=== PATIENT | female | born 1975 | race Caucasian/White ===

== ENCOUNTER 2018-01-07 09:26 | Emergency (ER) | payer BC ==
[2018-01-07 09:59] VITALS: BP 115/71
[2018-01-07] MEDS ORDERED: Tetan/Diph/Pertus SYR(Tdap)* 0.5 ML SYR(BOOSTRIX) use SYR IM ONE (10:06)
--- NOTE | 2018-01-07 10:07 | UC ---
Hand/Wrist HPI - HPI Summary HPI Summary: PT WAS APPLYING A BANDAGE TO HER INJURED DOG LAST PM AND THE DOG BIT HER. DOG IS UTD ON SHOTS AND WAS FINE AFTER. 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 LAST TETANUS IS NOT KNOWN. C/O SWELLING AND PW'S TO HER R INDEX FINGER. CLAENED SITE AFTER THE BITE. - History Of Current Complaint Chief Complaint: UCBiteInjury Stated Complaint: DOG BITE TO HAND Time Seen by Provider: 01/07/18 10:02 Hx Obtained From: Patient Hx Last Menstrual Period: 12/28/17 Onset/Duration: Sudden Onset Pain Intensity: 3 Character Of Pain: Stiffness - FROM SWELLING Associated Signs And Symptoms: Positive: Swelling. Negative: Redness, Fever, Weakness, Numbness/Tingling - Allergies/Home Medications Allergies/Adverse Reactions: Allergies Allergy/AdvReac Type Severity Reaction Status Date / Time No Known Allergies Allergy Verified 01/07/18 09:51 Home Medications: Home Medications Acetaminop/Codeine 30 MG TAB* [Tylenol/Codeine 30 MG TAB*] 1 tab PO Q6H PRN [History Confirmed 01/07/18] Fexofenadine (NF) [Martha 180 (NF)] 180 mg PO DAILY 01/07/18 [History Confirmed 01/07/18] Ibuprofen TAB* [Advil TAB*] 400 mg PO Q6H PRN 01/07/18 [History Confirmed ] Levonorgestrel-Ethin Estradiol [Maria Eugenia] 1 tab PO DAILY 01/07/18 [History Confirmed 01/07/18] PMH/Surg Hx/FS Hx/Imm Hx - Additional Past Medical History Additional PMH: ALLERGIES - Surgical History Surgical History: None - Family History Known Family History: Positive: None - Social History Occupation: Employed Full-time Alcohol Use: Occasionally Substance Use Type: None Smoking Status (MU): Never Smoked Tobacco - Immunization History Most Recent Tetanus Shot: unknown Vaccination Up to Date: Yes Review of Systems Constitutional: Negative Skin: Negative Eyes: Negative ENT: Negative Respiratory: Negative Cardiovascular: Negative Gastrointestinal: Negative Genitourinary: Negative Motor: Negative Neurovascular: Negative Musculoskeletal: Other: - pw's and swelling R index finger. Neurological: Negative Psychological: Negative Is Patient Immunocompromised?: No All Other Systems Reviewed And Are Negative: Yes Physical Exam Triage Information Reviewed: Yes Appearance: Well-Appearing Vital Signs: Initial Vital Signs Temp 98 F 01/07/18 09:54 Pulse 65 01/07/18 09:54 Resp 18 01/07/18 09:54 BP 115/71 01/07/18 09:54 Pulse Ox 100 01/07/18 09:54 Eyes: Positive: Conjunctiva Clear ENT: Positive: Normal ENT inspection Neck: Positive: Supple Respiratory: Positive: Lungs clear, Normal breath sounds Cardiovascular: Positive: RRR, No Murmur Abdomen Description: Positive: Nontender, No Organomegaly, Soft Bowel Sounds: Positive: Present Musculoskeletal: Positive: Other: - R hand: volar index with 2 pw's and dorsal has abrasions. digit with mild swelling. flexor tendon is non tender and passive /active rom is intact. not red oe warm and no streaking. rest of hand is atraumatic. Neurological: Positive: Alert Psychological: Positive: Age Appropriate Behavior Skin Exam: Normal Hand/Wrist Course/Dx - Course Course Of Treatment: no concern for infection or compartment syndrom. will update pt tetanus and tx with augmentin. dog utd on shots and acting normal for the situation. - Differential Dx/Diagnosis Provider Diagnoses: Dog bite R indewx finger. Discharge - Sign-Out/Discharge Documenting (check all that apply): Discharge - Discharge Plan Condition: Stable Disposition: HOME Prescriptions: Amoxicillin/Clavulanate TAB* [Augmentin TAB 875*] 875 mg PO BID #20 tab Patient Education Materials: Animal Bite (ED) Referrals: Chela Rodriguez MD [Primary Care Provider] - 5 Days - Billing Disposition and Condition Condition: STABLE Disposition: HOME
== END 2018-01-07 10:25 | disposition home or self-care (01) ==
LOC: UCCORT 09:26
DX: S61.250A Open bite of right index finger without damage to nail, initial encounter (principal); W54.0XXA Bitten by dog, initial encounter; Y93.89 Activity, other specified; Y92.9 Unspecified place or not applicable
CPT/HCPCS: 90471; 90715; 99202; G0463

== ENCOUNTER 2019-03-15 09:05 | Emergency (ER) | payer BC ==
--- OUTSIDE RECORDS SUMMARY | 2019-03-15 09:20 | XMS REPORT | Continuity of Care Document ---
:1975 External Reference #:[id number] Author Name Zahra PINEDA Carrizales Address [address] [place] [address] Care Team Providers Name Role Phone Dana Torres M.D. Care Team Information Bryologist Unavailable Chela Rodriguez M.D. Primary Care Physician Unavailable Payers Date Identification Numbers Payment Provider Subscriber Policy Number: [id number] [facility] Geri Hart PayID: [id number] [address] [place] [address] Problems Active Problems Provider Date Allergic rhinitis Francia Moses M.D. Onset: 04/27/2012 Food anaphylaxis Francia Moses M.D. Onset: 04/27/2012 Allergic rhinitis due to pollen Francia Moses M.D. 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 Home Environment Does not have an air conditioner Home Environment Stairs are present Home Environment Unfinished Basement Home Environment The basement is damp and dehumidifier used Home Environment The basement is moldy Home Environment Musty Basement Home Environment Cotton Comforter Home Environment Mattress is 5 years old Home Environment Mattress is not encased in an allergy proof case Home Environment Regular Mattress Home Environment Pillows are polyester Home Environment Uses a dehumidifier Home Environment Pillows are encased in an allergy proof case Home Environment There are draperies in the home Home Environment The home is not mik Home Environment The floors are carpeted Home Environment The floors are wood Home Environment The floors are tile Home Environment Radiator Heat Home Environment [place] in [place] [facility] Home Environment Water Source: [facility] Smoke-Free Home is smoke-free Smoke-Free Work is smoke-free Pets 1 dog Occupation [employer] ETOH Use Occasionally consumes alcohol Tobacco Use Start: Unknown Patient has never smoked Recreational Drug Use Denies Drug Use Allergies, Adverse Reactions, Alerts Active Allergies Reaction Severity Comments Date Tetracycline nausea and stomach pain 09/01/2011 Medications Active Medications SIG Qnty Indications Ordering Date Provider Epipen 2-Ernst use as directed 4units Zahra Carrizales, 01/30/2019 0.3mg/0.3ML [facility] Solution Auto-Inject Fluticasone Propionate 2 sprays in each 1units Jackie Herrera, nostril daily [facility] [employer] 50mcg/Act Suspension Martha Allergy 1 by mouth every 30tabs Unknown 180mg day Tablets Ketotifen Hydrogen as needed Unknown Fumarate Powder Levonorgestrel And Unknown Ethinyl Estradiol 0.1-0.02&0.01mg Tablets Zantac 150 Maximum take one twice a Unknown Strength day 150mg Tablets Medications Administered in Office Medication SIG Qnty Indications Ordering Provider Date Injection Allergy Injection 12/07/2016 Injection Injection Allergy Injection 11/09/2016 Injection Injection Allergy Injection 10/19/2016 Injection Injection Allergy Injection 10/06/2016 Injection Injection Allergy Injection 09/16/2016 Injection Injection Allergy Injection 09/07/2016 Injection Injection Allergy Injection 08/17/2016 Injection Injection Allergy Injection 07/20/2016 Injection Injection Allergy Injection 07/06/2016 Injection Injection Allergy Injection 06/22/2016 Injection Injection Allergy Injection 06/01/2016 Injection Injection Allergy Injection 05/18/2016 Injection Injection Allergy Injection 04/20/2016 Injection Injection Allergy Injection 04/06/2016 Injection Injection Allergy Injection 03/23/2016 Injection Injection Allergy Injection 02/24/2016 Injection Injection Allergy Injection 02/12/2016 Injection Injection Allergy Injection 01/27/2016 Injection Injection Allergy Injection 01/13/2016 Injection Injection Allergy Injection 12/30/2015 Injection Injection Allergy Injection 12/16/2015 Injection Injection Allergy Injection 11/18/2015 Injection Injection Allergy Injection 10/21/2015 Injection Injection Allergy Injection 09/16/2015 Injection Injection Allergy Injection 08/19/2015 Injection Injection Allergy Injection 07/22/2015 Injection Injection Allergy Injection 07/01/2015 Injection Injection Allergy Injection 06/10/2015 Injection Injection Allergy Injection 05/27/2015 Injection Injection Allergy Injection 05/06/2015 Injection Injection Allergy Injection 04/22/2015 Injection Injection Allergy Injection 04/08/2015 Injection Injection Allergy Injection 03/25/2015 Injection Injection Allergy Injection 03/04/2015 Injection Injection Allergy Injection 02/18/2015 Injection Injection Allergy Injection 02/04/2015 Injection Injection Allergy Injection 01/21/2015 Injection Injection Allergy Injection 01/07/2015 Injection Injection Allergy Injection 12/10/2014 Injection Injection Allergy Injection 11/12/2014 Injection Injection Allergy Injection 10/15/2014 Injection Injection Allergy Injection 09/17/2014 Injection Injection Allergy Injection 08/20/2014 Injection Injection Allergy Injection 07/16/2014 Injection Injection Francia Moses M.D. 06/25/2014 Injection Injection Allergy Injection 06/25/2014 Injection Injection Francia Moses M.D. 06/11/2014 Injection Injection Allergy Injection 06/11/2014 Injection Injection Francia Moses M.D. 05/28/2014 Injection Injection Allergy Injection 05/28/2014 Injection Injection Francia Moses M.D. 05/14/2014 Injection Injection Allergy Injection 05/14/2014 Injection Injection Francia Moses M.D. 04/30/2014 Injection Injection Allergy Injection 04/30/2014 Injection Injection Francia Moses M.D. 04/16/2014 Injection Injection Allergy Injection 04/16/2014 Injection Injection Francia Moses M.D. 03/26/2014 Injection Injection Allergy Injection 03/26/2014 Injection Injection Allergy Injection 03/05/2014 Injection Injection Francia Moses M.D. 02/05/2014 Injection Injection Allergy Injection 02/05/2014 Injection Injection Francia Moses M.D. 01/22/2014 Injection Injection Allergy Injection 01/22/2014 Injection Injection Francia Moses M.D. 01/08/2014 Injection Injection Allergy Injection 01/08/2014 Injection Injection Francia Moses M.D. 12/25/2013 Injection Injection Allergy Injection 12/25/2013 Injection Injection Francia Moses M.D. 12/04/2013 Injection Injection Allergy Injection 12/04/2013 Injection Injection Allergy Injection 11/20/2013 Injection Injection Allergy Injection 10/23/2013 Injection Injection Allergy Injection 10/09/2013 Injection Injection Francia Moses M.D. 09/27/2013 Injection Injection Allergy Injection 09/27/2013 Injection Injection Francia Moses M.D. 08/28/2013 Injection Injection Allergy Injection 08/28/2013 Injection Injection Francia Moses M.D. 08/14/2013 Injection Injection Allergy Injection 08/14/2013 Injection Injection Francia Moses M.D. 07/31/2013 Injection Injection Allergy Injection 07/31/2013 Injection Injection Francia Moses M.D. 07/12/2013 Injection Injection Allergy Injection 07/12/2013 Injection Injection Francia Moses M.D. 06/26/2013 Injection Injection Allergy Injection 06/26/2013 Injection Injection Francia Moses M.D. 06/12/2013 Injection Injection Allergy Injection 06/12/2013 Injection Injection Allergy Injection 05/29/2013 Injection Injection Francia Moses M.D. 05/15/2013 Injection Injection Allergy Injection 05/15/2013 Injection Injection Francia Moses M.D. 05/01/2013 Injection Injection Allergy Injection 05/01/2013 Injection Injection Francia Moses M.D. 04/10/2013 Injection Injection Allergy Injection 04/10/2013 Injection Injection Francia Moses M.D. 04/03/2013 Injection Injection Allergy Injection 04/03/2013 Injection Injection Francia Moses M.D. 03/13/2013 Injection Injection Allergy Injection 03/13/2013 Injection Injection Francia Moses M.D. 03/01/2013 Injection Injection Allergy Injection 03/01/2013 Injection Injection Francia Moses M.D. 02/13/2013 Injection Injection Allergy Injection 02/13/2013 Injection Injection Francia Moses M.D. 02/01/2013 Injection Injection Allergy Injection 02/01/2013 Injection Injection Francia McNairn, M.D. 01/16/2013 Injection Injection Allergy Injection 01/16/2013 Injection Injection Francia McNairn, M.D. 01/02/2013 Injection Injection Allergy Injection 01/02/2013 Injection Injection Francia McNairn, M.D. 12/19/2012 Injection Injection Allergy Injection 12/19/2012 Injection Injection Francia McNairn, M.D. 12/05/2012 Injection Injection Unknown 12/05/2012 Injection Injection Francia McNairn, M.D. 11/21/2012 Injection Injection Francia McNairn, M.D. 11/07/2012 Injection Injection Francia McNairn, M.D. 10/17/2012 Injection Injection Francia McNairn, M.D. 10/05/2012 Injection Injection Francia McNairn, M.D. 09/21/2012 Injection Injection Francia McNairn, M.D. 08/31/2012 Injection Injection Francia McNairn, M.D. 08/15/2012 Injection Injection Francia McNairn, M.D. 07/27/2012 Injection Injection Francia McNairn, M.D. 07/13/2012 Injection Injection Francia McNairn, M.D. 06/15/2012 Injection Injection Francia McNairn, M.D. 06/01/2012 Injection Injection Francia McNairn, M.D. 05/18/2012 Injection Injection Francia McNairn, M.D. 05/04/2012 Injection Injection Francia McNairn, M.D. 04/27/2012 Injection Injection Francia McNairn, M.D. 04/13/2012 Injection Injection Francia McNairn, M.D. 04/06/2012 Injection Injection Francia McNairn, M.D. 03/30/2012 Injection Injection Francia McNairn, M.D. 03/23/2012 Injection Injection Francia McNairn, M.D. 03/16/2012 Injection Injection Francia McNairn, M.D. 03/07/2012 Injection Injection Francia McNairn, M.D. 03/02/2012 Injection Injection Francia McNairn, M.D. 02/24/2012 Injection Injection Francia Moses M.D. 02/17/2012 Injection Injection Francia Moses M.D. 02/10/2012 Injection Injection Francia Moses, Christiano 02/01/2012 Injection Injection Francia Moses, Christiano 01/25/2012 Injection Injection Francia Moses, Christiano 01/18/2012 Injection Injection Francia Moses, Christiano 01/11/2012 Injection Injection Francia Moses, Christiano 01/04/2012 Injection Injection Francia Moses, Christiano 12/28/2011 Injection Injection Francia Moses, Christiano 12/21/2011 Injection Injection Francia Moses, Christiano 12/14/2011 Injection Injection Francia Moses, Christiano 12/07/2011 Injection Injection Francia Moses, Christiano 11/30/2011 Injection Injection Francia Moses, Christiano 11/23/2011 Injection Injection Francia Moses, Christiano 11/16/2011 Injection Injection Francia Moses, Christiano 11/09/2011 Injection Injection Francia Moses, Christiano 11/02/2011 Injection Immunizations CPT Code Status Date Vaccine Lot # [id number] Given Unknown Influenza Vaccine 00096 Given Unknown Influenza Vaccine Vital Signs Date Vital Result Comment 02/13/2019 9:58am Height 68 inches 5'8" Weight 190.00 lb Weight 86.184 kg Respiratory Rate 16 /min Heart Rate 57 /min O2 % BldC Oximetry 96 % BP Systolic 99 mmHg BP Diastolic 60 mmHg BMI (Body Mass Index) 28.9 kg/m2 01/30/2019 11:07am Height 68 inches 5'8" Weight 192.00 lb Weight 87.091 kg Respiratory Rate 18 /min Heart Rate 62 /min O2 % BldC Oximetry 98 % BP Systolic 96 mmHg BP Diastolic 62 mmHg BMI (Body Mass Index) 29.2 kg/m2 11/09/2016 8:56am Height 68 inches 5'8" Weight 194.00 lb Weight 87.998 kg Respiratory Rate 16 /min Heart Rate 67 /min O2 % BldC Oximetry 98 % BP Systolic 110 mmHg BP Diastolic 64 mmHg BMI (Body Mass Index) 29.5 kg/m2 04/30/2014 9:37am Height 67 inches 5'7" Weight 183.00 lb Weight 83.009 kg Respiratory Rate 18 /min Heart Rate 62 /min O2 % BldC Oximetry 97 % BP Systolic 118 mmHg BP Diastolic 82 mmHg BMI (Body Mass Index) 28.7 kg/m2 05/01/2013 9:43am Height 66 inches 5'6" Weight 180.00 lb Weight 81.648 kg Respiratory Rate 16 /min Heart Rate 70 /min O2 % BldC Oximetry 98 % BMI (Body Mass Index) 29.0 kg/m2 04/27/2012 8:57am Respiratory Rate 14 /min Heart Rate 74 /min Procedures Date Code Description Status 12/07/2016 04979 Injection Completed 11/09/2016 93695 Injection Completed 10/19/2016 93289 Injection Completed 10/06/2016 26245 Extract 1-10 Completed 10/06/2016 47701 Injection Completed 09/16/2016 62544 Injection Completed 09/07/2016 92594 Injection Completed 08/17/2016 02385 Injection Completed 07/20/2016 93311 Injection Completed 07/06/2016 20408 Injection Completed 06/22/2016 12443 Injection Completed 06/01/2016 69732 Injection Completed 05/18/2016 79369 Injection Completed 04/20/2016 82761 Injection Completed 04/06/2016 28188 Extract 1-10 Completed 04/06/2016 95129 Injection Completed 03/23/2016 48545 Injection Completed 02/24/2016 17205 Injection Completed 02/12/2016 10585 Injection Completed 01/27/2016 20967 Injection Completed 01/13/2016 53759 Injection Completed 12/30/2015 66137 Injection Completed 12/16/2015 56122 Injection Completed 11/18/2015 89339 Injection Completed 10/21/2015 82499 Injection Completed 09/16/2015 19053 Extract 1-10 Completed 09/16/2015 64496 Injection Completed 08/19/2015 91597 Injection Completed 07/22/2015 07243 Injection Completed 07/01/2015 31970 Injection Completed 06/10/2015 46800 Injection Completed 05/27/2015 90283 Injection Completed 05/06/2015 40087 Injection Completed 04/22/2015 14607 Injection Completed 04/08/2015 23509 Injection Completed 03/25/2015 05213 Injection Completed 03/04/2015 45056 Extract 1-10 Completed 03/04/2015 77098 Injection Completed 02/18/2015 87119 Injection Completed 02/04/2015 00114 Injection Completed 01/21/2015 35206 Injection Completed 01/07/2015 35804 Injection Completed 12/10/2014 57372 Injection Completed 11/12/2014 03478 Injection Completed 10/15/2014 21466 Injection Completed 09/17/2014 10705 Injection Completed 08/20/2014 49177 Injection Completed 07/16/2014 22954 Extract 1-10 Completed 07/16/2014 72068 Injection Completed 06/25/2014 02627 Injection Completed 06/25/2014 83588 Injection Completed 06/11/2014 68104 Injection Completed 06/11/2014 57146 Injection Completed 05/28/2014 91269 Injection Completed 05/28/2014 15970 Injection Completed 05/14/2014 58537 Injection Completed 05/14/2014 25305 Injection Completed 04/30/2014 80444 Injection Completed 04/30/2014 23069 Injection Completed 04/16/2014 96788 Injection Completed 04/16/2014 09474 Injection Completed 03/26/2014 00444 Injection Completed 03/26/2014 94562 Injection Completed 03/05/2014 47489 Injection Completed 02/05/2014 08488 Injection Completed 02/05/2014 50084 Injection Completed 01/22/2014 35233 Extract 1-10 Completed 01/22/2014 98960 Injection Completed 01/22/2014 19739 Injection Completed 01/08/2014 01355 Injection Completed 01/08/2014 50024 Injection Completed 12/25/2013 61687 Injection Completed 12/25/2013 55023 Injection Completed 12/04/2013 55876 Injection Completed 12/04/2013 53815 Injection Completed 11/20/2013 37338 Injection Completed 10/23/2013 10205 Injection Completed 10/09/2013 66095 Injection Completed 09/27/2013 27263 Injection Completed 09/27/2013 59014 Injection Completed 08/28/2013 49114 Injection Completed 08/28/2013 31037 Injection Completed 08/14/2013 18703 Injection Completed 08/14/2013 19285 Injection Completed 07/31/2013 16691 Extract 1-10 Completed 07/31/2013 53693 Injection Completed 07/31/2013 18963 Injection Completed 07/12/2013 35558 Injection Completed 07/12/2013 98522 Injection Completed 06/26/2013 81319 Injection Completed 06/26/2013 85251 Injection Completed 06/12/2013 14130 Injection Completed 06/12/2013 87351 Injection Completed 05/29/2013 80160 Injection Completed 05/15/2013 33548 Injection Completed 05/15/2013 07585 Injection Completed 05/01/2013 59921 Injection Completed 05/01/2013 31558 Injection Completed 04/10/2013 24987 Injection Completed 04/10/2013 51575 Injection Completed 04/03/2013 61089 Injection Completed 04/03/2013 99066 Injection Completed 03/13/2013 03288 Injection Completed 03/13/2013 91413 Injection Completed 03/01/2013 23865 Extract 1-10 Completed 03/01/2013 50164 Injection Completed 03/01/2013 83041 Injection Completed 02/13/2013 94531 Injection Completed 02/13/2013 66969 Injection Completed 02/01/2013 39479 Injection Completed 02/01/2013 71853 Injection Completed 01/16/2013 69484 Injection Completed 01/16/2013 09717 Injection Completed 01/02/2013 39930 Injection Completed 01/02/2013 16005 Injection Completed 12/19/2012 08133 Injection Completed 12/19/2012 53303 Injection Completed 12/05/2012 99716 Injection Completed 12/05/2012 25913 Injection Completed 11/21/2012 37245 Injection Completed 11/07/2012 39092 Injection Completed 10/17/2012 52008 Injection Completed 10/05/2012 77358 Injection Completed 10/05/2012 65859 Extract 1-10 Completed 09/21/2012 57768 Injection Completed 08/31/2012 71560 Injection Completed 08/15/2012 30058 Injection Completed 07/27/2012 57519 Injection Completed 07/13/2012 24191 Injection Completed 06/15/2012 13352 Injection Completed 06/01/2012 56046 Injection Completed 05/18/2012 90578 Injection Completed 05/04/2012 67127 Injection Completed 04/27/2012 83254 Injection Completed 04/27/2012 82540 Extract 1-10 Completed 04/13/2012 51905 Injection Completed 04/06/2012 80256 Injection Completed 03/30/2012 21619 Injection Completed 03/23/2012 70047 Injection Completed 03/16/2012 87394 Injection Completed 03/07/2012 09148 Injection Completed 03/02/2012 97995 Injection Completed 02/24/2012 62103 Injection Completed 02/17/2012 61950 Injection Completed 02/10/2012 69924 Injection Completed 02/01/2012 03496 Injection Completed 01/25/2012 15078 Injection Completed 01/18/2012 90720 Injection Completed 01/13/2012 49229 Extract 1-10 Completed 01/11/2012 24609 Injection Completed 01/04/2012 96598 Injection Completed 12/28/2011 77917 Injection Completed 12/21/2011 61042 Injection Completed 12/14/2011 83908 Injection Completed 12/07/2011 02714 Injection Completed 11/30/2011 90657 Injection Completed 11/23/2011 68084 Injection Completed 11/16/2011 44769 Injection Completed 11/09/2011 41919 Injection Completed 11/02/2011 70125 Injection Completed 10/25/2011 03486 Extract 1-10 Completed 09/01/2011 06175 Skin Test Scratch # Of Units ____ Completed 09/01/2011 60861 Oxygen Level - Pulse Oximiter Completed Encounters Type Date Location Provider Dx Diagnosis Office Visit 02/13/2019 [facility] Zahra Carrizales, J30.1 Allergic rhinitis 10:00a [facility] due to pollen J30.2 Other seasonal allergic rhinitis J30.81 Allergic rhinitis due to animal (cat) (dog) hair and dander J30.89 Other allergic rhinitis Office Visit 01/30/2019 11:00a [facility] Zahra Carrizales, Z91.013 Allergy to [facility] [employer] seafood J30.1 Allergic rhinitis due to pollen J30.2 Other seasonal allergic rhinitis J30.81 Allergic rhinitis due to animal (cat) (dog) hair and dander J30.89 Other allergic rhinitis Office Visit 11/09/2016 9:20a [facility] Pamela Muse J30.1 Allergic [facility] [employer] rhinitis due to pollen J30.81 Allergic rhinitis due to animal (cat) (dog) hair and dander J30.89 Other allergic rhinitis J30.2 Other seasonal allergic rhinitis Z68.29 Body mass index (BMI) 29.0-29.9, adult Office Visit 04/30/2014 9:40a [facility] Jackie Herrera, 477.8 Rhinitis [facility] Allergic Due To Other Allergen 477.0 Rhinitis Allergic Due To Pollen Office Visit 05/01/2013 9:40a [facility] Kristen Cr, 477.8 Rhinitis [employer] Allergic Due To Other Allergen 477.0 Rhinitis Allergic Due To Pollen 995.60 Anaphylactic Shock Due To Unspec Food Office Visit 04/27/2012 8:35a [place] [facility] Francia Moses 477.0 Rhinitis M.D. 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 477.0 Rhinitis Allergic Due To Pollen 477.8 Rhinitis Allergic Due To Other Allergen Office Visit 09/01/2011 9:00a [place] Francia Moses M.D. 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 Continue the fluticasone 2 sprays daily Continue the Martha 1 daily
--- OUTSIDE RECORDS SUMMARY | 2019-03-15 09:21 | XMS REPORT | Continuity of Care Document ---
:1975 External Reference #:[id number] Author Name Zahra PINEDA Carrizales Address [address] [address] Care Team Providers Name Role Phone Dana Torres M.D. Care Team Information Network Diagnostic Support Specialist Unavailable Chela Rodriguez M.D. 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] /min Procedures Date Code Description Status 12/07/2016 65207 Injection Completed 11/09/2016 95873 Injection Completed 10/19/2016 66007 Injection Completed 10/06/2016 36844 Extract 1-10 Completed 10/06/2016 30379 Injection Completed 09/16/2016 97363 Injection Completed 09/07/2016 66107 Injection Completed 08/17/2016 73545 Injection Completed 07/20/2016 10387 Injection Completed 07/06/2016 86540 Injection Completed 06/22/2016 27076 Injection Completed 06/01/2016 28696 Injection Completed 05/18/2016 66946 Injection Completed 04/20/2016 36572 Injection Completed 04/06/2016 75719 Extract 1-10 Completed 04/06/2016 34956 Injection Completed 03/23/2016 35843 Injection Completed 02/24/2016 83681 Injection Completed 02/12/2016 92490 Injection Completed 01/27/2016 16356 Injection Completed 01/13/2016 64498 Injection Completed 12/30/2015 45557 Injection Completed 12/16/2015 52953 Injection Completed 11/18/2015 73127 Injection Completed 10/21/2015 63125 Injection Completed 09/16/2015 71313 Extract 1-10 Completed 09/16/2015 90769 Injection Completed 08/19/2015 60028 Injection Completed 07/22/2015 39184 Injection Completed 07/01/2015 45504 Injection Completed 06/10/2015 36316 Injection Completed 05/27/2015 51887 Injection Completed 05/06/2015 58807 Injection Completed 04/22/2015 65146 Injection Completed 04/08/2015 02782 Injection Completed 03/25/2015 77623 Injection Completed 03/04/2015 94040 Extract 1-10 Completed 03/04/2015 96058 Injection Completed 02/18/2015 38649 Injection Completed 02/04/2015 78421 Injection Completed 01/21/2015 38679 Injection Completed 01/07/2015 04864 Injection Completed 12/10/2014 27911 Injection Completed 11/12/2014 43587 Injection Completed 10/15/2014 52210 Injection Completed 09/17/2014 24946 Injection Completed 08/20/2014 00682 Injection Completed 07/16/2014 37350 Extract 1-10 Completed 07/16/2014 85073 Injection Completed 06/25/2014 56668 Injection Completed 06/25/2014 93519 Injection Completed 06/11/2014 45940 Injection Completed 06/11/2014 38137 Injection Completed 05/28/2014 67241 Injection Completed 05/28/2014 24905 Injection Completed 05/14/2014 01133 Injection Completed 05/14/2014 48544 Injection Completed 04/30/2014 71480 Injection Completed 04/30/2014 00134 Injection Completed 04/16/2014 71341 Injection Completed 04/16/2014 92283 Injection Completed 03/26/2014 91952 Injection Completed 03/26/2014 84199 Injection Completed 03/05/2014 26167 Injection Completed 02/05/2014 72675 Injection Completed 02/05/2014 80808 Injection Completed 01/22/2014 93822 Extract 1-10 Completed 01/22/2014 97872 Injection Completed 01/22/2014 72459 Injection Completed 01/08/2014 83901 Injection Completed 01/08/2014 02141 Injection Completed 12/25/2013 29176 Injection Completed 12/25/2013 51170 Injection Completed 12/04/2013 93307 Injection Completed 12/04/2013 68050 Injection Completed 11/20/2013 34695 Injection Completed 10/23/2013 26213 Injection Completed 10/09/2013 62724 Injection Completed 09/27/2013 98176 Injection Completed 09/27/2013 94962 Injection Completed 08/28/2013 56498 Injection Completed 08/28/2013 74272 Injection Completed 08/14/2013 51590 Injection Completed 08/14/2013 69075 Injection Completed 07/31/2013 38248 Extract 1-10 Completed 07/31/2013 55780 Injection Completed 07/31/2013 44649 Injection Completed 07/12/2013 95058 Injection Completed 07/12/2013 49180 Injection Completed 06/26/2013 38599 Injection Completed 06/26/2013 09572 Injection Completed 06/12/2013 04323 Injection Completed 06/12/2013 98698 Injection Completed 05/29/2013 58552 Injection Completed 05/15/2013 59563 Injection Completed 05/15/2013 52738 Injection Completed 05/01/2013 73381 Injection Completed 05/01/2013 69468 Injection Completed 04/10/2013 33367 Injection Completed 04/10/2013 45496 Injection Completed 04/03/2013 38626 Injection Completed 04/03/2013 38783 Injection Completed 03/13/2013 97098 Injection Completed 03/13/2013 45914 Injection Completed 03/01/2013 06585 Extract 1-10 Completed 03/01/2013 66804 Injection Completed 03/01/2013 30024 Injection Completed 02/13/2013 50510 Injection Completed 02/13/2013 04943 Injection Completed 02/01/2013 54953 Injection Completed 02/01/2013 55012 Injection Completed 01/16/2013 03814 Injection Completed 01/16/2013 57460 Injection Completed 01/02/2013 75822 Injection Completed 01/02/2013 00865 Injection Completed 12/19/2012 00864 Injection Completed 12/19/2012 05618 Injection Completed 12/05/2012 06633 Injection Completed 12/05/2012 94173 Injection Completed 11/21/2012 49847 Injection Completed 11/07/2012 43088 Injection Completed 10/17/2012 89855 Injection Completed 10/05/2012 04674 Injection Completed 10/05/2012 77373 Extract 1-10 Completed 09/21/2012 46020 Injection Completed 08/31/2012 01153 Injection Completed 08/15/2012 07948 Injection Completed 07/27/2012 91796 Injection Completed 07/13/2012 51108 Injection Completed 06/15/2012 74764 Injection Completed 06/01/2012 50872 Injection Completed 05/18/2012 36837 Injection Completed 05/04/2012 96008 Injection Completed 04/27/2012 15665 Injection Completed 04/27/2012 06861 Extract 1-10 Completed 04/13/2012 05724 Injection Completed 04/06/2012 58171 Injection Completed 03/30/2012 20640 Injection Completed 03/23/2012 10234 Injection Completed 03/16/2012 59316 Injection Completed 03/07/2012 70534 Injection Completed 03/02/2012 07913 Injection Completed 02/24/2012 97496 Injection Completed 02/17/2012 54940 Injection Completed 02/10/2012 86215 Injection Completed 02/01/2012 84569 Injection Completed 01/25/2012 04363 Injection Completed 01/18/2012 08613 Injection Completed 01/13/2012 53617 Extract 1-10 Completed 01/11/2012 84672 Injection Completed 01/04/2012 46561 Injection Completed 12/28/2011 23050 Injection Completed 12/21/2011 82565 Injection Completed 12/14/2011 23426 Injection Completed 12/07/2011 65766 Injection Completed 11/30/2011 00011 Injection Completed 11/23/2011 56893 Injection Completed 11/16/2011 34003 Injection Completed 11/09/2011 52072 Injection Completed 11/02/2011 81384 Injection Completed 10/25/2011 24655 Extract 1-10 Completed 09/01/2011 42420 Skin Test Scratch # Of Units ____ Completed 09/01/2011 60710 Oxygen Level - Pulse Oximiter Completed Encounters Type Date Location Provider Dx Diagnosis Office Visit 02/13/2019 [facility] Zahra Carrizales, J30.1 Allergic rhinitis 10:00a [employer]ILITY COUNSELOR-C due to pollen J30.2 Other seasonal allergic rhinitis J30.81 Allergic rhinitis due to animal (cat) (dog) hair and dander J30.89 Other allergic rhinitis Office Visit 01/30/2019 11:00a [facility] Zahra Carrizales, Z91.013 Allergy to 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 J30.1 Allergic rhinitis due to pollen J30.2 Other seasonal allergic rhinitis J30.81 Allergic rhinitis due to animal (cat) (dog) hair and dander J30.89 Other allergic rhinitis Office Visit 11/09/2016 9:20a [facility] Pamela Muse J30.1 Allergic SKILLED NURSING FACILITY COUNSELOR-C rhinitis due to pollen J30.81 Allergic rhinitis due to animal (cat) (dog) hair and dander J30.89 Other allergic rhinitis J30.2 Other seasonal allergic rhinitis Z68.29 Body mass index (BMI) 29.0-29.9, adult Office Visit 04/30/2014 9:40a [facility] Jackie Herrera, 477.8 Rhinitis 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 Allergic Due To Other Allergen 477.0 Rhinitis Allergic Due To Pollen Office Visit 05/01/2013 9:40a [facility] Kristen Cr, 477.8 Rhinitis SKILLED NURSING FACILITY COUNSELOR-C Allergic Due To Other Allergen 477.0 Rhinitis Allergic Due To Pollen 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 477.0 Rhinitis Allergic Due To Pollen 477.8 Rhinitis Allergic Due To Other Allergen Office Visit 09/01/2011 9:00a [place] Francia Moses M.D. 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 Continue strict avoidance of crab and shrimp . If accidental ingestion occurs, refer [facility] Action Plan for treatment. Reviewed EAP, patient is comfortable and understands current plan. EMERGENCY ACTION PLAN: For systemic reactions: -Administer: EpiPen Jr 0.15 mg/EpiPen 0.3 mg IM to thigh muscle Auvi-Q 0.15 mg/AuviQ Q 0.3 mg IM to thigh muscle -May repeat the dose in 15-20 minutes if there is incomplete response to the first dose, or if symptoms get worse over time. -Call 911 for safe transport to an emergency facility. For mild reactions or suspected ingestion without symptoms : -Administer: Liquid Benadryl 12.5 mg/5 ml, tsp immediately and every 4-6 hours as needed.Do not give Benadryl if there is any difficulty swallowing, breathing or talking. Administer EpiPen instead.
[2019-03-15 09:26] VITALS: BP 113/67
--- NOTE | 2019-03-15 10:18 | UC ---
Ear Complaint HPI - HPI Summary HPI Summary: left ear pain x 2 days pain is 4 out of 10 , radiating to the left side of her face, nothing make is worse, better with Ibuprofen , no cold symptoms no fever, no chills - History of Current Complaint Chief Complaint: UCGeneralIllness Stated Complaint: LT EAR PAIN, ST Time Seen by Provider: 03/15/19 09:28 Hx Obtained From: Patient Hx Last Menstrual Period: 2 weeks ago ?: No Onset/Duration: Gradual Onset, Lasting Days - 2, Still Present Severity Initially: Moderate Severity Currently: Moderate Pain Intensity: 3 Pain Scale Used: 0-10 Numeric Aggravating Factors: Nothing Alleviating Factors: OTC Meds Associated Signs/Symptoms: Negative: Discharge, Hearing Loss, Foreign Body Sensation, Trauma to Ear, Swelling @, URI Symptoms - Allergies/Home Medications Allergies/Adverse Reactions: Allergies Allergy/AdvReac Type Severity Reaction Status Date / Time No Known Allergies Allergy Verified 03/15/19 09:26 Home Medications: Home Medications raNITIdine HCl [Acid Control] 75 mg PO DAILY 03/15/19 [History Confirmed ] PMH/Surg Hx/FS Hx/Imm Hx GI/ History: Gastroesophageal Reflux - Surgical History Surgical History: None - Family History Known Family History: Positive: None Negative: Diabetes - Social History Alcohol Use: Daily Substance Use Type: None Smoking Status (MU): Never Smoked Tobacco - Immunization History Most Recent Tetanus Shot: unknown Vaccination Up to Date: Yes Review of Systems All Other Systems Reviewed And Are Negative: Yes Constitutional: Positive: Negative Skin: Positive: Negative Eyes: Positive: Negative ENT: Positive: Ear Ache Respiratory: Positive: Negative Is Patient Immunocompromised?: No Physical Exam Triage Information Reviewed: Yes Appearance: Well-Appearing, No Pain Distress, Well-Nourished Vital Signs: Initial Vital Signs Temp 97.7 F 03/15/19 09:20 Pulse 65 03/15/19 09:20 Resp 18 03/15/19 09:20 BP 113/67 03/15/19 09:20 Pulse Ox 100 03/15/19 09:20 Vital Signs Reviewed: Yes Eye Exam: Normal Eyes: Positive: Conjunctiva Clear ENT: Positive: Normal ENT inspection, Hearing grossly normal, Pharynx normal, TMs normal. Negative: TM bulging, TM dull, TM red Neck: Positive: Supple, Nontender, No Lymphadenopathy Respiratory: Positive: Chest non-tender, Lungs clear, Normal breath sounds, No respiratory distress Cardiovascular: Positive: RRR, No Murmur, Pulses Normal Skin Exam: Normal Ear Complaint Course/Dx - Differential Dx/Diagnosis Provider Diagnosis: Otalgia Discharge - Sign-Out/Discharge Documenting (check all that apply): Patient Departure All imaging exams completed and their final reports reviewed: No Studies - Discharge Plan Condition: Stable Disposition: HOME Patient Education Materials: Earache (ED) Referrals: Chela Rodriguez MD [Primary Care Provider] - If Needed Additional Instructions: no infection noted no need for antibiotics at this time cont. with Ibuprofen , may try flonase daily follow up as needed - Billing Disposition and Condition Condition: STABLE Disposition: Home
== END 2019-03-15 09:38 | disposition home or self-care (01) ==
LOC: UCCORT 09:05
DX: H92.02 Otalgia, left ear (principal); K21.9 Gastro-esophageal reflux disease without esophagitis
CPT/HCPCS: 99211; G0463

== ENCOUNTER 2019-05-20 08:53 | Emergency (ER) | payer BC ==
--- OUTSIDE RECORDS SUMMARY | 2019-05-20 09:00 | XMS REPORT | Continuity of Care Document ---
:1975 External Reference #:[id number] Author Name Chela Rodriguez M.D. (transmitted by agent of provider Teresita Casas) Address [address] [place] [address] Problems Description No Information Available Social History Type Date Description Comments Sex Unknown Tobacco Use Start: Unknown Never Smoked Cigarettes ETOH Use Social Tobacco Use Start: Unknown Light tobacco smoker (10 or fewer cigarettes/day) Smoking Status Reviewed: 09/20/17 Light tobacco smoker (10 or fewer cigarettes/day) Allergies, Adverse Reactions, Alerts Active Allergies Reaction Severity Comments Date Tetracycline 03/28/2014 Medications Active Medications SIG Qnty Indications Ordering Date Provider Atovaquone-Proguanil 1 po q day 30tabs B52.8 Geovani Rodriguez 04/02/2019 HCL starting 1 day 250-100mg Tablets before travel and stopping i day after return Imodium A-D 1 by mouth every 30caps R19.7 Chela Rodriguez, 04/02/2019 2mg 4 hours as needed M.D. Capsules for diarrhea Sulfamethoxazole/Tri 1 by mouth twice 30tabs J01.80 Chela Rodriguez, 2018 methoprim DS a day M.D. 800-160mg Tablets HM Famotidine 1 po daily 90tabs Chela Rodriguez, 06/20/2018 20mg M.D. Tablets Calcium 1200 1 twice daily by 120units J30.2 Chela Rodriguez, 09/08/2015 mouth M.D. [id number]-Hxum Chewtabs Clonazepam 1 po bid as 60tabs F41.9 Chela Rodriguez, 11/04/2014 0.5mg needed M.D. Tablets Martha Allergy as directed as 90tabs Chela Rodriguez, 03/28/2014 60mg needed M.D. Tablets Seasonique take as directed 90tabs Chela Rodriguez, M.D. 0.15-0.03&0.01mg Tablets Zantac Unknown 150mg/6ML Solution History Medications Bactrim DS 1 by mouth 14tabs J01.80 Chela Rodriguez, 01/01/2019 - 800-160mg twice a day M.D. 01/01/2019 Tablets Bactrim DS 1 by mouth 14tabs J01.80 Chela Rodriguez, 12/25/2018 - 800-160mg twice a day M.D. 01/01/2019 Tablets Cefaclor 1 by mouth 30caps J01.80 Chela Rodriguez, 12/18/2018 - 500mg twice a day M.D. 12/25/2018 Capsules Amoxicillin/Clavulan 1 by mouth 30tabs J01.80 Chela Rodriguez, 11/27/2018 - ate Potassium twice a day M.D. 12/18/2018 875-125mg Tablets Immunizations CPT Code Status Date Vaccine Lot # [id number] Given 06/26/2017 Influenza Virus (Afluria) Split Virus 3 Years Of Age And Older Q2037 Given 07/10/2016 Influenza Vaccine (Fluvirin) 3 Years Of Age Or Older Q2037 Given 06/21/2014 Influenza Vaccine (Fluvirin) 3 Years Of Age Or [id number] Older 80468 Given 06/28/2011 Tetanus,Diphtheria,Adut/Adol Pertussis Vital Signs Date Vital Result Comment 05/15/2019 2:46pm BP Systolic 110 mmHg BP Diastolic 62 mmHg Heart Rate 73 /min Body Temperature 99.3 F Height 67 inches 5'7" Weight 189.00 lb BMI (Body Mass Index) 29.6 kg/m2 O2 % BldC Oximetry 99 % 04/02/2019 10:50am BP Systolic 102 mmHg BP Diastolic 72 mmHg Heart Rate 68 /min Height 67 inches 5'7" Weight 189.00 lb BMI (Body Mass Index) 29.6 kg/m2 O2 % BldC Oximetry 98 % Results Test Date Facility Test Result H/L Range Note Rubella Antibodies 04/02/2019 [facility] Rubella AB 4.28 Index High <0.90 1, 2 (Igg,Igm) [address] (Igg),[place] [address] [phone] Rubella AB (Igm) <20.00 AU/mL <20.00 3 Measles Antibodies 04/02/2019 [facility] Measles AB (Igg) 65.00 AU/mL 4 (Igg,Igm) [address] [address] [phone] Measles AB (Igm) <1:20 5 Basic Metabolic 12/04/2018 [facility] Glucose 85 mg/ dL Normal 74-106 6 Panel [address] [place] [address] [phone] BUN 10 mg/dL Normal 7-18 Creatinine 0.8 mg/dL Normal 0.6-1.3 Glom Filtration Rate, Estimate >60 mL/min >60 If >60 mL/min >60 7 BUN/Creat 12.5 ratio Sodium 140 mmol/L Normal 136-145 Potassium 3.8 mmol/L Normal 3.5-5.1 Chloride 110 mmol/L High 98-107 Carbon Dioxide 24 mmol/L Normal 21-32 Anion Gap 6 mEq/L Low 8-16 Calcium 8.7 mg/dL Normal 8.5-10.1 Laboratory test 12/04/2018 [facility] Magnesium 2.5 mg/dL High 1.8-2.4 finding [address] [place] [address] [phone] 1 FASTING 2 INDEX INTERPRETATION < 0.90 Negative 0.90 - 0.99 Equivocal > or = 1.00 Positive Detection of Rubella IgG in conjunction with detection of Rubella IgM indicates recent infection with Rubella virus; in contrast, detection of Rubella IgG in the absence of Rubella IgM indicates past infection or immunization. 3 AU/mL Interpretation <20.00 Negative 20.00 - 24.99 Equivocal > or = 25.00 Positive 4 REFERENCE RANGE: <25.00 AU/mL AU/mL Interpretation <25.00 Negative 25.00 - 29.99 Equivocal >29.99 Positive A positive result indicates that the patient has antibody to measles virus. It does not differentiate between an active or past infection. The clinical diagnosis must be interpreted in conjunction with clinical signs and symptoms of the patient. For additional information, please refer to http://[email or web address].[employer]aExpress/faq/[email or web address] (This link is being provided for informational/ educational purposes only.) Test Performed at: [facility] [id number] [place] [address] Doug Umana MD. Director 5 REFERENCE RANGE: <1:20 INTERPRETIVE CRITERIA: <1:20 Antibody Not Detected > or = 1:20 Antibody Detected The traditional serologic diagnosis of measles requires a significant rise in antibody titer between acute and convalescent sera. However, detection of IgM antibody in a single specimen may indicate acute disease. Correct interpretation of serologic data depends upon the proper timing of specimen collection in relation to rash onset. This timing is particularly important for interpreting negative IgM results, since IgM antibody peaks approximately 10 days after rash onset and is usually undetectable 30 days after rash onset. This test was developed and its analytical performance characteristics have been determined by [facility]. It has not been cleared or approved by FDA. This assay has been validated pursuant to the CLIA regulations and is used for clinical purposes. For additional information, please refer to http://GFRANQ.[employer]aExpress/faq/GZD514 (This link is being provided for informational/ educational purposes only.) Test Performed at: [facility] [id number] [place] [address] Doug Umana MD. Director 6 K21.9 7 Note: Persistent reduction for 3 months or more in an eGFR <60 mL/min/1.73 m2 defines CKD. Patients with eGFR values >/=60 mL/min/1.73 m2 may also have CKD if evidence of persistent proteinuria is present. The original MDRD equation for estimated GFR is not valid for patients less than 18 years of age. Additional information may be found at www.kdoqi.org. Procedures Description No Information Available Medical Devices Description No Information Available Encounters Type Date Location Provider Dx Diagnosis Office Visit 04/02/2019 Main Office Chela Rodriguez M.D. 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 unspecified Office Visit 12/18/2018 10:45a Main Office Duglas Pollock01.80 Other acute M.D. sinusitis K21.9 Gastro-esophageal reflux disease without esophagitis Z12.31 Encntr screen mammogram for malignant neoplasm of breast Office Visit 11/27/2018 10:30a Main Office Duglas Pollock01.80 Other acute M.D. sinusitis Assessments Date Code Description Provider 05/15/2019 J01.90 Acute sinusitis, unspecified Chela Rodriguez M.D. 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 01/01/2019 J32.9 Chronic sinusitis, unspecified Chela Rodriguez M.D. 12/18/2018 J01.80 Other acute sinusitis Chela Rodriguez M.D. 12/18/2018 K21.9 Gastro-esophageal reflux disease without Chela Rodriguez M.D. esophagitis 12/18/2018 Z12.31 Encounter for screening mammogram for malignant Chela Rodriguez M.D. neoplasm of breast 11/27/2018 J01.80 Other acute sinusitis Chela Rodriguez M.D. Plan of Treatment 06/20/2018 - Chela Rodriguez M.D.K21.9 Gastro-esophageal reflux disease without esophagitisComments:well controlled with daily PPI, nexum 20 mg , she is concerned over half-way usage of PPI. Discussed possible bone loss suggested getting adequate dietary calcium and magnesium or taking a suppplement will monitor calcium and mag levelsAllNew Medication:HM Famotidine 20 mg - 1 po dailyNexium 20 mg - Functional Status Description No Information Available Mental Status Description No Information Available Referrals Description No Information Available
--- OUTSIDE RECORDS SUMMARY | 2019-05-20 09:00 | XMS REPORT | Continuity of Care Document ---
:1975 External Reference #:[id number] Author Name Chela Rodriguez M.D. (transmitted by agent of provider Aura Cisneros) Address [address] [place] [address] Problems Description No Information Available Social History [...] 120units J30.2 Chela Rodriguez, 09/08/2015 mouth M.D. [id number] Chewtabs Clonazepam 1 po bid as 60tabs [...] Vaccine (Fluvirin) 5 Years Of Age Or 0715882 Older [address] Given 06/28/2011 Tetanus,Diphtheria,Adut/Adol Pertussis Vital Signs Date [...] Index High <0.90 1, 2 (Igg,Igm) [address] (Igg),[place] [address] [phone] Rubella AB (Igm) <20.00 AU/mL <20.00 3 Measles Antibodies 04/02/2019 [facility] Measles AB (Igg) 65.00 AU/mL 4 (Igg,Igm) [address] [place] [id number] [phone] Measles AB (Igm) <1:20 5 Basic Metabolic 12/04/2018 [facility] Glucose 85 mg/ dL Normal 74-106 6 Panel [address] [place] [id number] [phone] BUN 10 mg/dL Normal 7-18 Creatinine 0.8 mg/dL Normal 0.6-1.3 Glom Filtration Rate, Estimate >60 mL/min >60 If >60 mL/min >60 7 BUN/Creat 12.5 ratio Sodium 140 mmol/L Normal 136-145 Potassium 3.8 mmol/L Normal 3.5-5.1 Chloride 110 mmol/L High 98-107 Carbon Dioxide 24 mmol/L Normal 21-32 Anion Gap 6 mEq/L Low 8-16 Calcium 8.7 mg/dL Normal 8.5-10.1 Laboratory test 12/04/2018 [facility] Magnesium 2.5 mg/dL High 1.8-2.4 finding [address] [place] [address] [phone] 1 FASTING 2 INDEX INTERPRETATION < 0.90 [...] patient. For additional information, please refer to http://[employer]/faq/YJV038 (This link is being provided for informational/ educational purposes only.) Test Performed at: [facility] [address] [place] [address] Doug Umana MD. Director 5 REFERENCE RANGE: [...] analytical performance characteristics have been determined by [facility]. It has not been cleared or approved by FDA. This assay has been validated pursuant to the CLIA regulations and is used for clinical purposes. For additional information, please refer to http://[employer]/faq/FMI652 (This link is being provided for informational/ educational purposes only.) Test Performed at: [facility] [address] [place] [address] Doug Umana MD. Director 6 K21.9 7 [...] 20 mg , she is concerned over longterm usage of PPI. Discussed possible bone loss suggested getting adequate dietary calcium and magnesium or taking a suppplement will monitor calcium and mag levelsAllNew Medication:HM Famotidine 20 mg - 1 po dailyNexium 20 mg - Functional Status Description No Information Available Mental Status Description No Information Available Referrals Description No Information Available
[2019-05-20 09:10] VITALS: BP 121/81
--- NOTE | 2019-05-20 09:31 | UC ---
Throat Pain/Nasal Jalen HPI - HPI Summary HPI Summary: Pt presents with c/o continued sinus pressure, jaw pain and nasal congestion. Pt thought she had a sinus infection and began taking clindamycin 200 mg PO Q*H X 8 days with no improvement and then saw PCP and was told to d/c the clinda and given RX for BActrim DS Q12h, pt began taking that on 05/16 with little to no improvement in symptoms. Pt has seasonal allergies and has been taking zohra 10 PO daily for "years". 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 and expresses that she is "very anxious" about her health. She recently traveled to [facility] for two weeks to visit family - History of Current Complaint Chief Complaint: UCRespiratory Stated Complaint: SINUS PRESSURE Time Seen by Provider: 05/20/19 09:07 Hx Obtained From: Patient Hx Last Menstrual Period: 05/19/19 ?: No Onset/Duration: Gradual Onset, Lasting Weeks, Still Present Severity: Mild Pain Intensity: 2 Cough: None Associated Signs & Symptoms: Positive: Sinus Discomfort, Fever - resolved Related History: Seasonal Allergies - Epiglottits Risk Factors Epiglottis Risk Factors: Negative - Allergies/Home Medications Allergies/Adverse Reactions: Allergies Allergy/AdvReac Type Severity Reaction Status Date / Time shrimp Allergy Nausea, Verified 05/20/19 09:05 Vomiting, Diarrhea Home Medications: Home Medications Naproxen Sodium [Naproxen 220 mg] 440 mg PO Q12H PRN 05/20/19 [History Confirmed 05/20/19] PMH/Surg Hx/FS Hx/Imm Hx Previously Healthy: Yes Psychological History: Anxiety - Surgical History Surgical History: None - Family History Known Family History: Positive: None, Cardiac Disease Negative: Diabetes - Social History Occupation: Employed Full-time Lives: With Family Alcohol Use: Occasionally Substance Use Type: None Smoking Status (MU): Never Smoked Tobacco Have You Smoked in the Last Year: No - Immunization History Most Recent Tetanus Shot: unknown Vaccination Up to Date: Yes Review of Systems All Other Systems Reviewed And Are Negative: Yes Constitutional: Positive: Fatigue Skin: Positive: Negative Eyes: Positive: Negative ENT: Positive: Sore Throat, Sinus Congestion, Sinus Pain/Tenderness Respiratory: Positive: Negative Cardiovascular: Positive: Negative Gastrointestinal: Positive: Negative Genitourinary: Positive: Negative Motor: Positive: Negative Neurovascular: Positive: Negative Musculoskeletal: Positive: Negative Neurological: Positive: Negative Psychological: Positive: Negative Is Patient Immunocompromised?: No Physical Exam Triage Information Reviewed: Yes Appearance: Well-Appearing Vital Signs: Initial Vital Signs Temp 98.4 F 05/20/19 08:59 Pulse 64 05/20/19 08:59 Resp 16 05/20/19 08:59 BP 121/81 05/20/19 08:59 Pulse Ox 100 05/20/19 08:59 Vital Signs Reviewed: Yes Eye Exam: Normal ENT: Positive: Nasal congestion, Sinus tenderness Dental Exam: Normal Neck exam: Normal Respiratory Exam: Normal Cardiovascular Exam: Normal Musculoskeletal Exam: Normal Neurological Exam: Normal Psychological Exam: Normal Skin Exam: Normal Throat Pain/Nasal Course/Dx - Course Course Of Treatment: I discussed with the patient the length of use of antibiotics with no improvement and the risk factors. Pt verbalized understanding and agreed to plan of care. I discussed with the pt my thoughts that she needed further evaluation by ENT specialist. - Differential Dx/Diagnosis Differential Diagnosis/HQI/PQRI: Sinusitis, URI Provider Diagnosis: Sinusitis Discharge ED - Sign-Out/Discharge Documenting (check all that apply): Patient Departure All imaging exams completed and their final reports reviewed: No Studies - Discharge Plan Condition: Stable Disposition: HOME Prescriptions: Amoxicillin PO (*) [Amoxicillin 875 MG (*)] 875 mg PO Q12H #14 tab Cetirizine* [ZyrTEC 10 MG TAB*] 10 mg PO DAILY #10 tab Fluconazole 150 MG TAB* [Diflucan 150 MG TAB*] 150 mg PO UC ONCE #2 tablet Patient Education Materials: Sinusitis (ED) Referrals: Mika Da Silva MD [Medical Doctor] - If Needed Pranay Urbina MD [Medical Doctor] - If Needed Chela Rodriguez MD [Primary Care Provider] - If Needed - Billing Disposition and Condition Condition: STABLE Disposition: Home
== END 2019-05-20 09:44 | disposition home or self-care (01) ==
LOC: UCCORT 08:53
DX: J32.9 Chronic sinusitis, unspecified (principal)
CPT/HCPCS: 99212; G0463